=== PATIENT | female | born 1985 | race Caucasian/White ===

== ENCOUNTER 2020-01-06 10:15 | Outpatient (RCR) | payer BC, SELFPAY ==
[2020-01-06 12:09] LABS: Hematocrit 29.2 % (37.0-47.0); Hemoglobin 10.1 g/dL (12.0-15.0)
[2020-01-06 12:25] LABS: Glucose 1 Hour PP 50gm Dose 79 mg/dL
[2020-01-06 13:05] LABS: HIV 1/2 Ab P24 Ag Result Negative (Negative)
[2020-01-07 07:32] LABS: Rapid Plasma Reagin Non-Reactive (NonReactive)
[2020-01-07] MEDS: RHO(D) IMMUNE GLOBULIN 300 MCG SYRINGE IM (10:55)
== END 2020-04-05 23:59 | disposition home or self-care (01) ==
LOC: ANHLAB 10:15
PROVIDERS: Visit Provider Obstetrics & Gynecology
DX: Z29.13 Encounter for prophylactic Rho(D) immune globulin (principal); O36.0130 Maternal care for anti-D [Rh] antibodies, third trimester, not applicable or unspecified; Z11.4 Encounter for screening for human immunodeficiency virus [HIV]; Z3A.00 Weeks of gestation of pregnancy not specified
CPT/HCPCS: 36415; 82947; 85014; 85018; 85461; 86592; 86703; 90384; 96372; G0432; J2790

== ENCOUNTER 2020-03-20 06:15 | Inpatient (IN) | payer BC, SELFPAY ==
[2020-03-20] VITALS (20 sets, daily range): BP systolic 85–125; BP diastolic 38–77; PULSE 73–106; RESP 18; TEMP 36.6–37.2; BMI 21.2
[2020-03-20 06:50] LABS: Basophils Percent Auto 0.3 % (0.2-1.2); Eosinophils Percent Auto 0.1 % (0-4.4); Hematocrit 38.3 % (37.0-47.0); Hemoglobin 13.6 g/dL (12.0-15.0); Immature Granulocyte Percent A 0.9 % (0-0.5); Immature Platelet Fraction Pct 6.3 % (0.9-11.2); Lymphocytes Absolute Auto 1.88 K/mm3 (0.9-3.2); Lymphocytes Percent Auto 17.6 % (18.3-44.2); Mean Corpuscular HGB Conc 35.5 g/dl (32-36); Mean Corpuscular Hemoglobin 33.7 pg (26-34); Mean Corpuscular Volume 94.8 fl (80-100); Mean Platelet Volume 11.5 fl (7.4-10.4); Monocytes Absolute Auto 0.6 K/mm3 (0.1-0.6); Monocytes Percent Auto 5.5 % (2.6-8.5); Neutrophils Absolute Auto 8.1 K/mm3 (1.3-6.7); Neutrophils Percent Auto 75.6 % (45.5-73.1); Platelet Count Result 121 k/mm3 (150-375); Red Blood Count 4.04 M/mm3 (4.2-5.4); Red Cell Distribution Width 13.7 % (11.5-14.5); White Blood Count 10.7 K/mm3 (4.5-10.0)
[2020-03-20] MEDS: AMPICILLIN 2 GM/NS 100 ML 2 GM/100 ML BAG IVPB (06:51)
[2020-03-20] MEDS: LACTATED RINGERS 1,000 ML 125 ML IV CONT (06:51)
--- NOTE | 2020-03-20 07:19 | P.HP_ITS ---
H&P: HPI History of Present Illness Date/Time: 03/20/20 07:20 Chief complaint: labor Narrative: Mery Chatman is a 34 year old female [facility] Family History Family History (Updated 02/23/20 @ 15:45 by Barb Block RN) Father Family history of elevated blood lipids Hypertension Mother Hypertension Grandparent Family history of cardiovascular disease Social History Social History Smoking status: Never smoker Alcohol intake: never Substance use: never Spiritual care concerns: No Meds Home Medications and Allergies Home Medications Medication Instructions Recorded Confirmed Type PNV cmb#95-ferrous fumarate-FA 1 tablet PO DAILY 02/23/20 02/23/20 History [] ferrous sulfate 1 mg PO DAILY 02/23/20 02/23/20 History Allergies Allergy/AdvReac Type Severity Reaction Status Date / Time adhesive tape Allergy Mild rash Verified 02/23/20 15:40 Vital Signs Vital Signs - 24 hr 03/20/20 06:31 03/20/20 07:02 03/20/20 07:16 Temperature 37.2 C Pulse Rate 95 97 Blood Pressure 124/70 92/74 L H&P: Results Labs Labs: Short CBC 03/20/20 Range/Units 06:42 WBC 10.7 H (4.5-10.0) K/mm3 Hgb 13.6 D (12.0-15.0) g/dL Hct 38.3 (37.0-47.0) % Plt Count 121 L (150-375) k/mm3 Assessment and Plan Assessment and plan (1) : Code(s): Z34.90 - Encounter for supervision of normal , unspecified, unspecified trimester Status: Acute Assessment and Plan: pt arrived in active labor, intact membranes, GBS +
--- NOTE | 2020-03-20 07:40 | LDADM ---
This patient, Mery Chatman, was admitted to Labor/Delivery/Recovery 105 on 03/20/20 at 06:15. Plans for labor, pain management and were discussed with patient. Patient/family oriented to hospital policies and general routines including ID bracelet, bed and alarms, visiting hours, pain management, procedures, bathroom and other care routines, personal items, smoking policy, room service/diet and guest tray routines, infant security routines, and visiting hours. Patient/Family are encouraged to report perceived risks to care and to ask questions if they do not understand what they are told or what they should do. See OBIX for further documentation.
[2020-03-20] MEDS: OXYTOCIN 30 UNITS/NS 500 ML 30 UNITS/500 ML BAG 999 UNITS IV CONT (09:35)
--- NOTE | 2020-03-20 09:44 | PM.OBPRVD ---
OB - Delivery Note Procedure Delivery date: 03/20/20 Procedure: vaginal delivery Intrapartal events: None Delivery augmentation: rupture of membranes Delivery monitor: external FHT and external uterine Route of delivery: Laceration description: Perineal - 1st Degree Delivery repair: vicryl Specimen: No Estimated blood loss (mL): 125 Anesthesia type: Local Disposition: other () Complications: body slow to deliver, no dystocia Baby Date of : 03/20/20 Time of : 09:29 Weeks of gestation at delivery: 39 gender: Female Weight (pounds): 7 Weight (ounces): 4 presentation: vertex position: Left Occiput Anterior Placenta delivery description: Spontaneous cord vessel description: 3 Vessels and Clamped/Cut score one minute: 9 score five minutes: 9
[2020-03-20] MEDS: OXYTOCIN 30 UNITS/NS 500 ML 30 UNITS/500 ML BAG 125 UNITS IV CONT (10:03)
[2020-03-20] MEDS: IBUPROFEN 600 MG TABLET (11:16)
[2020-03-20] MEDS: BENZOCAINE 20% AER SPR (*SP) 56 GM CAN 1 SPRAY TOPICAL (11:52)
[2020-03-20] MEDS: WITCH HAZEL 40 PADS 1 PAD TOPICAL (11:52)
--- NOTE | 2020-03-20 12:02 | PC.NURSE ---
Patient transferred to post room #277 per wheelchair from labor and delivery. Support person present. Oriented to unit, room, information board, rooming in, admission packet and security measures. Patient verbalizes understanding.
[2020-03-21] MEDS: IBUPROFEN 600 MG TABLET PO ×4 (02:22→21:45)
[2020-03-21 05:09] LABS: Hematocrit 31.3 % (37.0-47.0); Hemoglobin 11.1 g/dL (12.0-15.0)
[2020-03-21 08:34] VITALS: BP 101/62; PULSE 69; RESP 16; TEMP 37.1; O2SAT 97
[2020-03-21] MEDS: DOCUSATE SODIUM 100 MG CAPSULE PO (09:27)
--- NOTE | 2020-03-21 11:47 | PM.OBPNVD ---
OB - PN: Subj Subjective Date/time seen: 03/21/20 11:47 Patient comments: no complaints, pain well controlled, incisional pain, tolerating diet and flatus present OB - PN: Obj Data Labs CBC & Chem 7: 03/21/20 04:09 Labs: Laboratory Results - last 24 hr 03/21/20 04:09 Hgb 11.1 L Hct 31.3 L OB - PN A/P Plan day: 1 Plan: routine care Comments: No problems, routine care Time Spent With Patient Time: Total time spent is greater than 50% in coordination of care (as documented) at patient's floor/unit and/or counseling patient: Exam Const: General: comfortable, no acute distress and alert Resp: Effort & Inspection: normal respiratory effort Auscultation: no crackles, no rales and no rhonchi Cardio: Rate: regular rate Heart sounds: no click, no murmurs and no rubs GI: Inspection: non-distended GI Palp: No Tenderness to palpation present (GI) Auscultation: normal bowel sounds Other: Incision - CDI Extrem: General: normal to inspection, no pedal edema and no calf tenderness
[2020-03-21 19:10] VITALS: BP 109/58; PULSE 67; RESP 12; TEMP 36.7
[2020-03-21] MEDS: diphenhydrAMINE HCl CAP 25 MG CAPSULE PO (21:45)
--- NOTE | 2020-03-22 07:03 | PM.OBPNVD ---
OB - PN: Subj Subjective Date/time seen: 03/22/20 07:03 Patient comments: no complaints baby status: doing well OB - PN: Obj Data Labs CBC & Chem 7: 03/21/20 04:09 OB - PN A/P Plan day: 2 Plan: discharge home Time Spent With Patient Time: Total time spent is greater than 50% in coordination of care (as documented) at patient's floor/unit and/or counseling patient: Review of Systems Review of Systems: All systems reviewed & are unremarkable except as noted in HPI and below Exam Const: General: comfortable Resp: Effort & Inspection: normal respiratory effort Psych: Appearance: grossly normal Affect: normal affect Attitude: cooperative Judgement: Good judgement present (Psych)
[2020-03-22 08:55] VITALS: BP 109/66; PULSE 73; RESP 18; TEMP 36.8
[2020-03-22 09:50] LABS: Rapid Plasma Reagin Non-Reactive (NonReactive)
[2020-03-22] MEDS: DOCUSATE SODIUM 100 MG CAPSULE PO (10:07)
[2020-03-24 10:55] VITALS: BP 111/70; PULSE 71; RESP 16; TEMP 36.7; O2SAT 99
--- NOTE | 2020-03-24 17:45 | PM.OBDSVD ---
DS: Admitting Diagnosis Admitting Diagnosis Admitting Diagnosis: labor OB - DS: Summary OB Procedures : None OB Procedures Intrapartum: Spontaneous Vag Delivery OB Procedures: : None Time Spent with Patient Time attestation: Total time spent providing and/or coordinating discharge services: Discharge Plan Discharge Attending physician on discharge: Ebony Richardson Consulting providers: Carla Mata Discharging Clinician: Carla Mata Patient Disposition: Home, Self-Care Activity: pelvic rest Diet: as tolerated Discharge Instructions: Education: Mom and Baby Guide Given to: Patient Follow-Up: Call your delivering provider's office for an appointment to be seen in: 4 weeks Mom and baby should come to the [facility] for the follow-up appointment. Appointment Date/Time: Sunday03/24/2020 at 11:00 am Call [phone] if you are unable to keep your appointment time. BREAST CARE: * Wear a snug supportive bra. * For engorgement discomfort: Bottle Feeding: * May apply ice packs EPISIOTOMY/PERINEAL CARE: * Until bleeding stops, use your richard bottle after urinating * Change your pad frequently throughout the day * You may take sitz baths several times a day (fill your bathtub with warm water and soak for 20 minutes.) Do NOT bathe in the water * No tub baths until seen by your physician - You may shower ACTIVITY: * Rest as much as possible. * Do not exercise or lift anything heavier than your baby (such as laundry or other children.) * Avoid stairs or driving as much as possible. * Do not put anything into the vagina. No douching, tampons, or sexual activity until seen by physician. NOTIFY PHYSICIAN IF YOU HAVE ANY QUESTIONS OR IF ANY OF THE FOLLOWING SYMPTOMS OCCUR: * If your episiotomy or incision becomes red, swollen, or more painful than what you have experienced in the hospital. * If your vaginal bleeding becomes foul smelling. * If your vaginal bleeding becomes more heavy than a period or if your bleeding changes from pink to bright red. However, you may pass an occasional walnut-sized clot once or twice for the first week . * If you experience a sharp, shooting pain in you calves. * If you discover a hard, reddened area on your breast or if you experience flu-like symptoms. DIET: * Eat regular, well-balanced meals. * Drink plenty of fluids daily. If , drink to thirst. Follow-up/Referrals: Carla Mata CNM [Certified Nurse Tree Trimming Supervisor] - 4 Weeks Discharge Medications: Continued PNV cmb#95-ferrous fumarate-FA [] 28 mg iron- 800 mcg Tablet 1 tablet PO DAILY RF: 0 Discontinued ferrous sulfate 143 mg (45 mg iron) Tablet Extended Release 1 mg PO DAILY RF: 0 Date of admission: 03/20/20 06:15 Primary Care Provider: PHYSICIAN,ADJUSTER [employer] Admitting Provider: Ebony Richardson Discharge Date/Time: 03/22/20 13:28 Attending physician on admission: Ebony Richardson
== END 2020-03-22 13:28 | disposition home or self-care (01) | DRG 807 ==
LOC: ANHLDR 06:33 → ANHOB2 12:11
PROVIDERS: Advanced Practice Midwife; Admitting Provider Obstetrics & Gynecology; Visit Provider Obstetrics & Gynecology
DX: O99.824 Streptococcus B carrier state complicating childbirth (principal); Z37.0 Single live birth; O70.0 First degree perineal laceration during delivery; Z3A.39 39 weeks gestation of pregnancy
CPT/HCPCS: 36415; 85014; 85018; 85025; 85055; 86592; 86850; 86880; 86900; 86901; A9270; J0290; J2590; J7120